=== PATIENT | female | born 1970 | race Caucasian/White ===

== ENCOUNTER 2018-01-05 00:40 | Emergency (ER) | payer MEDICARE ==
[~2018-01-05 00:40] MED LIST: Metoclopramide 10 MG/2 ML SDV IM ONE; Sodium Chloride 0.9% 1,000 ML IV ONE; diphenhydrAMINE 50 MG/ML SDV IVPUSH ONE
[2018-01-05] MEDS ORDERED: Dicyclomine 10 MG Cap PO ONE (02:25)
[2018-01-05] MEDS ORDERED: Ketorolac 30 MG/ML SDV IVPUSH ONE (13:06)
[2018-01-06 06:24] LABS: CHLORIDE,CL 104 mmol/L (98-115); SODIUM,NA 138 mmol/L (136-145)
--- NOTE | 2018-01-06 08:47 | EDM.PDOC ---
ED HPI GENERAL MEDICAL PROBLEM - General Chief Complaint: Gastrointestinal Problem Stated Complaint: ABDOMINAL PAIN Time Seen by Provider: 01/05/18 00:45 Source of Information: Reports: Patient History Limitations: Reports: No Limitations - History of Present Illness INITIAL COMMENTS - FREE TEXT/NARRATIVE: PATIENT IS A 87-YEAR-OLD FEMALE WHO PRESENTS TO THE EMERGENCY DEPARTMENT THIS MORNING WITH A COMPLAINT OF ABDOMINAL PAIN, NAUSEA, ONE EPISODE OF VOMITING, AND ONE EPISODE OF DIARRHEA THAT BEGAN 2 HOURS AGO. ABDOMINAL PAIN IS DESCRIBED CRAMPING INTO A BALL. PATIENT STATES THAT SHE HAD MILD DISCOMFORT DURING DAY AFTER EATING AT A [employer]. SHE CONSUMED A HAMBURGER AND ICE CREAM CONE AND ADMITS TO DAIRY INTOLERANCE, BUT IF SHE DOES HAVE DAIRY PRODUCTS THE SYMPTOMS REVOLVE RESOLVE QUICKLY. SYMPTOMS BECAME MUCH WORSE AT 11 P.M. PATIENT HAS HISTORY OF GASTRIC BYPASS, BUT NO RECENT ABDOMINAL SURGERIES. PATIENT DENIES CHEST PAIN, SHORTNESS OF BREATH, FEVER, DYSURIA, VAGINAL BLEEDING, OUT OF COUNTRY TRAVEL, BLOOD IN STOOL OR VOMITUS. 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 (see below) (NONE) - Related Data Allergies Allergy/AdvReac Type Severity Reaction Status Date / Time ziprasidone [From Geodon] Allergy Other Verified 01/05/18 12:43 Home Meds: Home Meds Atropine/Diphenoxylate [Diphenoxylate-Atropine] 2.5 mg PO QID PRN 01/11/14 [ History] Simvastatin 20 mg PO BEDTIME 01/11/14 [History] Cranberry Extract [Cranberry] 500 mg PO DAILY 01/30/14 [History] DULoxetine HCl [Duloxetine HCl] 90 mg PO BEDTIME 01/30/14 [History] Topiramate 75 mg PO BEDTIME 01/30/14 [History] Levothyroxine Sodium [Synthroid] 150 mcg PO BEDTIME 02/21/16 [History] Cholecalciferol (Vitamin D3) [Vitamin D3] 1,000 unit PO DAILY 05/26/16 [History] Cyanocobalamin (Vitamin B12) [Vitamin B12] 1,000 mcg IM Q60D 05/26/16 [History] ARIPiprazole [Aripiprazole] 15 mg PO BID 01/05/18 [History] Acetaminophen [Tylenol] 650 mg PO Q4H PRN 01/05/18 [History] Calcium Carbonate/Vitamin D3 [Caltrate 600+D 1500 MG-400 Units] 1 tab PO BID 04/17 [History] Dextroamphetamine/Amphetamine [Adderall Xr 30 mg Capsule] 30 mg PO DAILY [History] Dextroamphetamine/Amphetamine [Dextroamp-Amphetamin 20 mg Tab] 20 mg PO 1200 04/17 [History] Dicyclomine [Bentyl] 20 mg PO QID PRN 01/05/18 [History] Eletriptan HBr [Relpax] 40 mg PO Q2H PRN MDD 120 01/05/18 [History] Ibuprofen [Motrin Ib] 600 mg PO Q6H PRN 01/05/18 [History] Iron Polysaccharides Complex [Ferrex 150] 150 mg PO DAILY 01/05/18 [History] Melatonin 20 mg PO BEDTIME 01/05/18 [History] Nystatin 1 applic TOP BID PRN 01/05/18 [History] Omeprazole 40 mg PO DAILY 01/05/18 [History] Ondansetron [Zofran ODT] 4 mg PO Q4H PRN 01/05/18 [History] Polyvinyl Alcohol/Povidone [Refresh Eye Drops] 1 drop EYEBOTH BID PRN 01/05/18 [ History] Potassium Chloride [Klor-Con M20] 20 meq PO DAILY 01/05/18 [History] #103/Iron Fumarate/Fa [ ] 1 tab PO DAILY 01/05/18 [ History] Suvorexant [Belsomra] 10 mg PO BEDTIME 01/05/18 [History] Triamcinolone Acetonide [Kenalog 0.1% Crm] 15 gm TOP QID PRN 01/05/18 [History] buPROPion [Wellbutrin] 100 mg PO TID 01/05/18 [History] diphenhydrAMINE [Benadryl] 25 mg PO BEDTIME 01/05/18 [History] Past Medical History - Past Health History Medical/Surgical History: Denies Medical/Surgical History HEENT History: Reports: Impaired Vision Cardiovascular History: Reports: High Cholesterol Neurological History: Reports: Migraines Psychiatric History: Reports: Anxiety, Depression, Panic Attack Endocrine/Metabolic History: Reports: Hypothyroidism Dermatologic History: Reports: Other (See Below) Other Dermatologic History: has been picking at her skin and has open areas on arms chest neck. - Past Surgical History GI Surgical History: Reports: Bariatric Procedure Social & Family History - Caffeine Use Caffeine Use: Reports: Soda - Living Situation & Occupation Living situation: Reports: , with Significant Other ED ROS GENERAL - Review of Systems Review Of Systems: ROS reveals no pertinent complaints other than HPI. Constitutional: Reports: No Symptoms HEENT: Reports: No Symptoms Respiratory: Reports: No Symptoms Cardiovascular: Reports: No Symptoms Endocrine: Reports: No Symptoms GI/Abdominal: Reports: Abdominal Pain, Diarrhea, Nausea, Vomiting : Reports: No Symptoms Musculoskeletal: Reports: No Symptoms Skin: Reports: No Symptoms Neurological: Reports: No Symptoms Psychiatric: Reports: No Symptoms Hematologic/Lymphatic: Reports: No Symptoms Immunologic: Reports: No Symptoms ED EXAM, GI/ABD - Physical Exam Exam: See Below Exam Limited By: No Limitations General Appearance: Alert, WD/WN, Mild Distress Nose: Normal Inspection, Normal Mucosa, No Blood Throat/Mouth: Normal Inspection, Normal Oropharynx, No Airway Compromise Head: Atraumatic, Normocephalic Neck: Normal Inspection, Supple, Non-Tender. No: Lymphadenopathy (L), Lymphadenopathy (R) Respiratory/Chest: No Respiratory Distress, Lungs Clear, Normal Breath Sounds, No Accessory Muscle Use, Chest Non-Tender Cardiovascular: Regular Rate, Rhythm, No Murmur GI/Abdominal Exam: Soft, No Organomegaly, No Distention, No Abnormal Bruit, No Mass, Tender (PERIUMBILICAL). No: Distended, Guarding, Rigid, Rebound Back Exam: Normal Inspection. No: CVA Tenderness (L), CVA Tenderness (R) Extremities: Normal Inspection, No Pedal Edema Neurological: Alert, Oriented, Normal Cognition Psychiatric: Normal Affect, Normal Mood Skin Exam: Warm, Dry, Intact, Normal Color, No Rash Lymphatic: No Adenopathy Course - Orders/Labs/Meds Labs: Laboratory Tests 01/05/18 01/05/18 01/05/18 Range/Units 01:00 01:10 01:30 WBC 7.0 (5.0-10.0) 10^3/uL RBC 4.46 (3.80-5.50) 10^6/uL Hgb 13.2 (12.0-16.0) g/dL Hct 40.5 (37.0-47.0) % MCV 90.6 (82.0-92.0) fL MCH 29.5 (27.0-31.0) pg MCHC 32.6 (32.0-36.0) g/dL RDW 13.1 (11.5-14.5) % Plt Count 226 (150-300) 10^3/uL MPV 9.2 (7.4-10.4) fL Neut % (Auto) 52.1 (50.0-70.0) % Lymph % (Auto) 36.5 (20.0-40.0) % Motley % (Auto) 8.1 H (2.0-8.0) % Eos % (Auto) 2.5 (1.0-3.0) % Baso % (Auto) 0.8 (0.0-1.0) % Neut # (Auto) 3.5 (2.5-7.0) 10^3/uL Lymph # (Auto) 2.6 (1.0-4.0) 10^3/uL Motley # (Auto) 0.6 (0.1-0.8) 10^3/uL Eos # (Auto) 0.2 (0.1-0.3) 10^3/uL Baso # (Auto) 0.1 (0.0-0.1) 10^3/uL Sodium 138 (136-145) mmol/L Potassium 3.1 L (3.3-5.3) mmol/L Chloride 104 (98-115) mmol/L Carbon Dioxide 23.5 (21.0-32.0) mmol/L BUN 12 (6-25) mg/dL Creatinine 0.64 (0.51-1.17) mg/dL Est Cr Clr Drug Dosing TNP Estimated GFR (MDRD) > 60 mL/min Glucose 146 H (70-110) mg/dL Calcium 8.5 L (8.7-10.3) mg/dL Specimen Type Urinblad Urine Color Yellow (YELLOW) Urine Appearance Clear (CLEAR) Urine pH 5.5 (5.0-9.0) Ur Specific [place] 1.030 (1.005-1.030) Urine Protein Negative (NEGATIVE) mg/dL Urine Glucose (UA) Negative (NEGATIVE) mg/dL Urine Ketones Trace H (NEGATIVE) mg/dL Urine Occult Blood Trace-intact H (NEGATIVE) Urine Nitrite Negative (NEGATIVE) Urine Bilirubin Negative (NEGATIVE) Urine Urobilinogen 0.2 (0.2-1.0) E.U./dL Ur Leukocyte Esterase Negative (NEGATIVE) Meds: Medications Discontinued Medications Generic Name Dose Route Start Last Admin Trade Name Harsha PRN Reason Stop Dose Admin Dicyclomine HCl 10 mg 01/05/18 02:25 01/05/18 02:25 Bentyl PO 01/05/18 02:26 10 mg ONETIME ONE Administration Diphenhydramine HCl 50 mg 01/04/18 02:09 01/05/18 02:05 Benadryl IVPUSH 01/04/18 02:10 25 mg ONETIME ONE Administration Sodium Chloride 1,000 mls @ 999 mls/hr 01/04/18 01:20 01/05/18 01:25 Normal Saline IV 01/04/18 02:20 999 mls/hr .BOLUS ONE Administration Ketorolac Tromethamine 30 mg 01/05/18 13:06 01/05/18 01:20 Toradol IVPUSH 01/05/18 13:07 30 mg ONETIME ONE Administration Metoclopramide HCl 10 mg 01/04/18 01:19 01/05/18 01:25 Reglan IM 01/04/18 01:20 10 mg ONETIME ONE Administration - Radiology Interpretation Free Text/Narrative:: FLAT AND UPRIGHT PLAIN ABDOMINAL FILMS SHOW NO OBSTRUCTIVE BOWEL PATTERN. - Re-Assessments/Exams Free Text/Narrative Re-Assessment/Exam: 01/06/18 08:50 PATIENT AFEBRILE, NONTOXIC APPEARING, VITAL SIGNS STABLE, PAIN CONTROLLED. PATIENT WILL FOLLOW-UP AT [facility] TOMORROW. RETURN TO THE EMERGENCY DEPARTMENT SOONER IF SYMPTOMS CONTINUE OR WORSEN. 01/06/18 08:51 Departure - Departure Time of Disposition: 02:50 Disposition: Home, Self-Care 01 Condition: Good Clinical Impression: Abdominal pain - Discharge Information Instructions: Abdominal Pain, Adult, [id number], Nausea and Vomiting, Adult, [id number] Referrals: Clayton Jara PA-C [Primary Care Provider] - Additional Instructions: PATIENT WILL FOLLOW-UP TOMORROW AT [facility]. RETURN TO THE EMERGENCY DEPARTMENT SOONER IF SYMPTOMS CONTINUE OR WORSEN - Assessment/Plan Assessment:: ABDOMINAL PAIN. Plan: PATIENT WILL FOLLOW-UP AT [facility] TOMORROW
== END 2018-01-05 02:50 | disposition home or self-care (01) ==
LOC: KA.ED 00:40
DX: R10.9 Unspecified abdominal pain (principal); E78.00 Pure hypercholesterolemia, unspecified; E03.9 Hypothyroidism, unspecified; Z79.899 Other long term (current) drug therapy; Z88.8 Allergy status to other drugs, medicaments and biological substances
CPT/HCPCS: 36415; 74021; 80048; 81003; 85025; 96361; 96372; 96374; 96375; 99284; A9270; J1200; J1885; J2765; J7030

== ENCOUNTER 2018-01-05 12:20 | Observation (INO) | payer MEDICARE ==
[2018-01-05] MEDS ORDERED: Dextrose 5%-0.45% NaCl 1,000 ML IV SCH (12:45)
[2018-01-05] MEDS ORDERED: Dicyclomine 10 MG Cap PO PRN (12:53)
[2018-01-05] MEDS ORDERED: Pantoprazole 40 MG Vial IVPUSH SCH (13:00)
[2018-01-05] MEDS: HYDROmorphone 1 MG/ML Syringe IVPUSH PRN ×2 (13:50→18:54)
[2018-01-05 14:20] LABS: CHLORIDE,CL 105 mmol/L (98-115); SODIUM,NA 140 mmol/L (136-145)
[2018-01-05] MEDS ORDERED: Ondansetron 4 MG/2 ML SDV IV PRN (15:30)
[2018-01-05] MEDS ORDERED: Piperacillin/Tazobactam/Dext 3.375 GM in Premix Bag 1 BAG IV SCH ×2 (18:00→21:00)
[2018-01-05] MEDS ORDERED: Promethazine 12.5 MG in Sodium Chloride 0.9% 50 ML IV PRN (18:20)
[2018-01-05] MEDS ORDERED: Iopamidol 612 MG/ML 75 ML Bottle IV ONE (18:25)
[2018-01-05] MEDS ORDERED: Sodium Chloride 0.9% 50 ML IV SCH (18:30)
[2018-01-05 22:14] VITALS: BP 115/77
--- NOTE | 2018-01-08 08:04 | DISCH ---
ADMITTING DIAGNOSIS: Gastroenteritis with nausea, vomiting, abdominal pain. FINAL DIAGNOSIS: Bowel obstruction of gastric bypass. PROCEDURE PERFORMED: None applicable. BRIEF HISTORY AND ESSENTIAL FINDINGS: This is a 47-year-old female patient who at 11:00 p.m. on night, which was 01/04/2018, started having excruciating abdominal pain with nausea. She went to the emergency room around 12:30 a.m. after midnight. She was seen in the emergency room. Lab work was obtained, which CBC and CMP were both unremarkable. Abdominal x-ray was obtained, flat and upright, which showed nonspecific bowel gas pattern per Radiology. The patient was given some IV fluids and sent home. The patient's pain had not resided. She continued to have severe abdominal pain. She presented to the clinic to see myself in the clinic. She was very nauseous. She had emesis multiple in the clinic. She was given IV fluids in the clinic along with Zofran 4 mg IV. She continued to have multiple emesis even after Zofran was given. At that time, she was admitted to the hospital for further evaluation and treatment. The patient was found on CT scan to have a bowel obstruction to her gastric bypass at that time. SIGNIFICANT LABS, X-RAYS, AND CONSULTATION FINDINGS: Patient's lab work that was drawn in the emergency room was unremarkable. Repeat lab work that was obtained around noon on 01/05/2018. CBC showed a white count elevated at 13.8 with a shift to the left. The patient's chemistry panel is unremarkable except for creatinine was low at 0.47. The patient's urinalysis that was obtained in the emergency room was unremarkable. Also, the patient's CAT scan of the abdomen and pelvis that was obtained. The impression reads per Radiology, Uli Robles MD radiologist states: obstruction of the biliary limb of gastric bypass with small bowel dilation up to 5 cm. The transition point appears to be at the enteroenteric anastomosis where there is twisting of mesentery and short segment intussusception. This is a closed-loop type obstruction. COURSE IN THE HOSPITAL WITH COMPLICATIONS IF ANY: The patient had been given multiple doses of Zofran with continued nausea. She was also given some Phenergan IV for nausea. The patient was given Dilaudid IV for abdominal pain. She was also given some Bentyl for abdominal cramping. IV fluid was given to the patient. NG tube to low intermittent suction was started after CAT scan of the abdomen and pelvis was performed. The patient was also given one dose of Zosyn 3.375 g IV. CONDITION, TREATMENT, AND FINAL DISPOSITION ON DISCHARGE AND PROGNOSIS: Condition is unstable. Final disposition would be the [facility] in [place], [place]. PROGNOSIS AND TREATMENT: Bowel obstruction of gastric bypass. The patient will be transferred via ambulance to [place], [place]. The patient will then be transferred by [facility] fixed-wing to [place], [place]. Accepting physician is Uli Mora. He is the one who did patient's gastric bypass surgery in 2004. /[id number]/MODL MTDD
== END 2018-01-05 22:40 ==
LOC: KA.MS 12:20
PROVIDERS: ADMIT Physician Assistant; ATTEND Family Medicine
DX: K91.30 Postprocedural intestinal obstruction, unspecified as to partial versus complete (principal); K95.89 Other complications of other bariatric procedure; E87.6 Hypokalemia; K52.9 Noninfective gastroenteritis and colitis, unspecified; F33.9 Major depressive disorder, recurrent, unspecified; F41.9 Anxiety disorder, unspecified; F42.9 Obsessive-compulsive disorder, unspecified; F90.9 Attention-deficit hyperactivity disorder, unspecified type; F43.10 Post-traumatic stress disorder, unspecified; E78.5 Hyperlipidemia, unspecified; F60.3 Borderline personality disorder; Z79.899 Other long term (current) drug therapy; Z98.890 Other specified postprocedural states; R10.9 Unspecified abdominal pain; E78.00 Pure hypercholesterolemia, unspecified; E03.9 Hypothyroidism, unspecified; Z88.8 Allergy status to other drugs, medicaments and biological substances
CPT/HCPCS: 36415; 74021; 74177; 80048; 80053; 81003; 82271; 85025; 87040; 96361; 96365; 96372; 96374; 96375; 96376; 99284; A9270; C9113; G0378; J1170; J1200; J1885; J2405; J2543; J2550; J2765; J7030; J7042; J7050; Q9967

== ENCOUNTER 2018-01-17 18:12 | Emergency (ER) | payer MEDICARE ==
--- NOTE | 2018-01-17 18:44 | EDM.PDOC ---
ED HPI GENERAL MEDICAL PROBLEM - General Chief Complaint: Gastrointestinal Problem Stated Complaint: mild abdominal pain post surgical bowel obstruction Time Seen by Provider: 01/17/18 18:30 Source of Information: Reports: Patient History Limitations: Reports: No Limitations - History of Present Illness INITIAL COMMENTS - FREE TEXT/NARRATIVE: 47 YO WF presents to ER with concerns of mild right sided abdominal discomfort s /p 10 post op bowel obstruction surgery. Pt with history of gastric bypass (2004 ) who was seen in ER 01/05/2018 and clinic 01/06/2018 and transferred due to bowel obstruction. Pt was seen by her general surgery doctor who performed her bypass in [place] for decompression surgery. Pt tolerated post op course well. Pt woke this am with 2/10 pain localized to right side of abdomen adjacent to vertical incision. Pt denies severe pain, no nausea/vomiting, no worsening pain with movement. Pt eating/drinking well. Pt concerned because she feels a small lump next to incision and thinks it maybe a hernia. Pt without fever/chills and passing gas without any bowel changes. Onset: Today Location: Reports: Abdomen Quality: Reports: Ache Severity: Mild Improves with: Reports: None Worsens with: Reports: None Associated Symptoms: Denies: Chest Pain, Fever/Chills, Nausea/Vomiting, Rash, Shortness of Breath - Related Data Allergies Allergy/AdvReac Type Severity Reaction Status Date / Time ziprasidone [From Malachidon] Allergy Other Verified 01/05/18 12:43 Home Meds: Home Meds Atropine/Diphenoxylate [Diphenoxylate-Atropine] 2.5 mg PO QID PRN 01/11/14 [ History] Simvastatin 20 mg PO BEDTIME 01/11/14 [History] Cranberry Extract [Cranberry] 500 mg PO DAILY 01/30/14 [History] DULoxetine HCl [Duloxetine HCl] 90 mg PO BEDTIME 01/30/14 [History] Topiramate 75 mg PO BEDTIME 01/30/14 [History] Levothyroxine Sodium [Synthroid] 150 mcg PO BEDTIME 02/21/16 [History] Cholecalciferol (Vitamin D3) [Vitamin D3] 1,000 unit PO DAILY 05/26/16 [History] Cyanocobalamin (Vitamin B12) [Vitamin B12] 1,000 mcg IM Q60D 05/26/16 [History] ARIPiprazole [Aripiprazole] 15 mg PO BID 01/05/18 [History] Acetaminophen [Tylenol] 650 mg PO Q4H PRN 01/05/18 [History] Calcium Carbonate/Vitamin D3 [Caltrate 600+D 1500 MG-400 Units] 1 tab PO BID 04/17 [History] Dextroamphetamine/Amphetamine [Adderall Xr 30 mg Capsule] 30 mg PO DAILY [History] Dextroamphetamine/Amphetamine [Dextroamp-Amphetamin 20 mg Tab] 20 mg PO 1200 04/17 [History] Dicyclomine [Bentyl] 20 mg PO QID PRN 01/05/18 [History] Eletriptan HBr [Relpax] 40 mg PO Q2H PRN MDD 120 01/05/18 [History] Ibuprofen [Motrin Ib] 600 mg PO Q6H PRN 01/05/18 [History] Iron Polysaccharides Complex [Ferrex 150] 150 mg PO DAILY 01/05/18 [History] Melatonin 20 mg PO BEDTIME 01/05/18 [History] Nystatin 1 applic TOP BID PRN 01/05/18 [History] Omeprazole 40 mg PO DAILY 01/05/18 [History] Ondansetron [Zofran ODT] 4 mg PO Q4H PRN 01/05/18 [History] Polyvinyl Alcohol/Povidone [Refresh Eye Drops] 1 drop EYEBOTH BID PRN 01/05/18 [ History] Potassium Chloride [Klor-Con M20] 20 meq PO DAILY 01/05/18 [History] #103/Iron Fumarate/Fa [ ] 1 tab PO DAILY 01/05/18 [ History] Suvorexant [Belsomra] 10 mg PO BEDTIME 01/05/18 [History] Triamcinolone Acetonide [Kenalog 0.1% Crm] 15 gm TOP QID PRN 01/05/18 [History] buPROPion [Wellbutrin] 100 mg PO TID 01/05/18 [History] diphenhydrAMINE [Benadryl] 25 mg PO BEDTIME 01/05/18 [History] Past Medical History - Past Health History Medical/Surgical History: Denies Medical/Surgical History HEENT History: Reports: Impaired Vision Cardiovascular History: Reports: High Cholesterol Neurological History: Reports: Migraines Psychiatric History: Reports: Anxiety, Depression, Panic Attack Endocrine/Metabolic History: Reports: Hypothyroidism Dermatologic History: Reports: Other (See Below) Other Dermatologic History: has been picking at her skin and has open areas on arms chest neck. - Past Surgical History GI Surgical History: Reports: Bariatric Procedure Social & Family History - Caffeine Use Caffeine Use: Reports: Soda - Living Situation & Occupation Living situation: Reports: , with Significant Other ED ROS GENERAL - Review of Systems Review Of Systems: See Below Constitutional: Reports: No Symptoms. Denies: Fever, Chills, Decreased Appetite HEENT: Reports: No Symptoms Respiratory: Reports: No Symptoms Cardiovascular: Reports: No Symptoms Endocrine: Reports: No Symptoms GI/Abdominal: Reports: Abdominal Pain : Reports: No Symptoms Musculoskeletal: Reports: No Symptoms Skin: Reports: No Symptoms Neurological: Reports: No Symptoms Psychiatric: Reports: No Symptoms Hematologic/Lymphatic: Reports: No Symptoms Immunologic: Reports: No Symptoms ED EXAM, GI/ABD - Physical Exam Exam: See Below Exam Limited By: No Limitations General Appearance: Alert, WD/WN, No Apparent Distress Head: Atraumatic, Normocephalic Neck: Normal Inspection, Supple, Non-Tender, Full Range of Motion Respiratory/Chest: No Respiratory Distress, Lungs Clear, Normal Breath Sounds, No Accessory Muscle Use, Chest Non-Tender Cardiovascular: Normal Peripheral Pulses, Regular Rate, Rhythm, No Edema, No Gallop, No JVD, No Murmur, No Rub GI/Abdominal Exam: Normal Bowel Sounds, Soft, Non-Tender, No Organomegaly, No Distention, No Abnormal Bruit, No Mass, Pelvis Stable. No: Hernia Back Exam: Normal Inspection, Full Range of Motion, NT Extremities: Normal Inspection, Normal Range of Motion, Non-Tender, Normal Capillary Refill, No Pedal Edema Neurological: Alert, Oriented, CN II-XII Intact, Normal Cognition, Normal Gait, Normal Reflexes, No Motor/Sensory Deficits Psychiatric: Normal Affect, Normal Mood Skin Exam: Warm, Dry, Intact, Normal Color, No Rash Lymphatic: No Adenopathy Departure - Departure Time of Disposition: 18:48 Disposition: Home, Self-Care 01 Condition: Good Clinical Impression: Seroma after procedure - Discharge Information Instructions: Seroma Referrals: Clayton Jara PA-C [Primary Care Provider] - Forms: ED Department Discharge Additional Instructions: 1. Discharge home 2. follow up with PC for further evaluation and treatment this week 3. return to ER for worsening pain, vomiting, or inability to move bowels 4. follow up with surgery as scheduled - Assessment/Plan Assessment:: 1. no evidence of hernia on exam 2. suspect seroma adjacent to incision site Plan: 1. Discharge home 2. follow up with PC for further evaluation and treatment this week 3. return to ER for worsening pain, vomiting, or inability to move bowels 4. follow up with surgery as scheduled
[2018-01-17 19:43] VITALS: BP 112/72
== END 2018-01-17 18:55 | disposition home or self-care (01) ==
LOC: KA.ED 18:12
DX: K91.872 Postprocedural seroma of a digestive system organ or structure following a digestive system procedure (principal); E78.00 Pure hypercholesterolemia, unspecified; F41.9 Anxiety disorder, unspecified; F32.9 Major depressive disorder, single episode, unspecified; E03.9 Hypothyroidism, unspecified; Z98.84 Bariatric surgery status; Z88.8 Allergy status to other drugs, medicaments and biological substances; Z79.899 Other long term (current) drug therapy
CPT/HCPCS: 99283

== ENCOUNTER 2018-02-28 07:49 | Emergency (ER) | payer MEDICARE ==
[2018-02-28 08:04] VITALS: BP 90/57
--- NOTE | 2018-02-28 08:57 | EDM.PDOC ---
ED HPI GENERAL MEDICAL PROBLEM - General Chief Complaint: General Stated Complaint: LOW LEFT BACK PAIN Time Seen by Provider: 02/28/18 08:40 Source of Information: Reports: Patient History Limitations: Reports: No Limitations - History of Present Illness INITIAL COMMENTS - FREE TEXT/NARRATIVE: Patient is a 47-year-old female who presents to the emergency department this morning with a complaint of left lower back pain. Patient states discomfort started about 5 days ago, has progressively gotten worse and had a hard time sleeping last night. Patient denies specific injury or insult, dysuria, dark urine, nausea, vomiting, diarrhea, bloody stool, fever, abdominal pain, chest pain, or shortness of breath. Onset: Gradual Duration: Day(s): Location: Reports: Back Quality: Reports: Ache Severity: Mild Improves with: Reports: None Worsens with: Reports: Movement Context: Reports: Other (Denies any specific injury or insult) Associated Symptoms: Reports: No Other Symptoms Left Lower Back Pain Score (Numeric/FACES): 2 - Related Data Allergies Allergy/AdvReac Type Severity Reaction Status Date / Time ziprasidone [From Geodon] Allergy Other Verified 02/28/18 08:04 Home Meds: Home Meds Atropine/Diphenoxylate [Diphenoxylate-Atropine] 2.5 mg PO QID PRN 01/11/14 [ History] Simvastatin 20 mg PO BEDTIME 01/11/14 [History] Cranberry Extract [Cranberry] 500 mg PO DAILY 01/30/14 [History] DULoxetine HCl [Duloxetine HCl] 90 mg PO BEDTIME 01/30/14 [History] Topiramate 75 mg PO BEDTIME 01/30/14 [History] Levothyroxine Sodium [Synthroid] 150 mcg PO BEDTIME 02/21/16 [History] Cholecalciferol (Vitamin D3) [Vitamin D3] 1,000 unit PO DAILY 05/26/16 [History] Cyanocobalamin (Vitamin B12) [Vitamin B12] 1,000 mcg IM Q60D 05/26/16 [History] ARIPiprazole [Aripiprazole] 15 mg PO BID 01/05/18 [History] Acetaminophen [Tylenol] 650 mg PO Q4H PRN 01/05/18 [History] Calcium Carbonate/Vitamin D3 [Caltrate 600+D 1500 MG-400 Units] 1 tab PO BID 04/17 [History] Dextroamphetamine/Amphetamine [Adderall Xr 30 mg Capsule] 30 mg PO DAILY [History] Dextroamphetamine/Amphetamine [Dextroamp-Amphetamin 20 mg Tab] 20 mg PO 1200 04/17 [History] Dicyclomine [Bentyl] 20 mg PO QID PRN 01/05/18 [History] Eletriptan HBr [Relpax] 40 mg PO Q2H PRN MDD 120 01/05/18 [History] Ibuprofen [Motrin Ib] 600 mg PO Q6H PRN 01/05/18 [History] Iron Polysaccharides Complex [Ferrex 150] 150 mg PO DAILY 01/05/18 [History] Melatonin 20 mg PO BEDTIME 01/05/18 [History] Nystatin 1 applic TOP BID PRN 01/05/18 [History] Omeprazole 40 mg PO DAILY 01/05/18 [History] Ondansetron [Zofran ODT] 4 mg PO Q4H PRN 01/05/18 [History] Polyvinyl Alcohol/Povidone [Refresh Eye Drops] 1 drop EYEBOTH BID PRN 01/05/18 [ History] Potassium Chloride [Klor-Con M20] 20 meq PO DAILY 01/05/18 [History] #103/Iron Fumarate/Fa [ ] 1 tab PO DAILY 01/05/18 [ History] Suvorexant [Belsomra] 10 mg PO BEDTIME 01/05/18 [History] Triamcinolone Acetonide [Kenalog 0.1% Crm] 15 gm TOP QID PRN 01/05/18 [History] buPROPion [Wellbutrin] 100 mg PO TID 01/05/18 [History] diphenhydrAMINE [Benadryl] 25 mg PO BEDTIME 01/05/18 [History] Past Medical History - Past Health History Medical/Surgical History: Denies Medical/Surgical History HEENT History: Reports: Impaired Vision Cardiovascular History: Reports: High Cholesterol CORRECTION WARDEN History: Reports: Musculoskeletal History: Reports: None Neurological History: Reports: Migraines Psychiatric History: Reports: Anxiety, Depression, Panic Attack Endocrine/Metabolic History: Reports: Hypothyroidism Hematologic History: Reports: B12 Deficiency Dermatologic History: Reports: Other (See Below) Other Dermatologic History: has been picking at her skin and has open areas on arms chest neck. - Past Surgical History GI Surgical History: Reports: Bariatric Procedure, Other (See Below) Other GI Surgeries/Procedures: recent abd surgery for bowel intussecion Social & Family History - Family History Family Medical History: Noncontributory - Caffeine Use Caffeine Use: Reports: Soda - Living Situation & Occupation Living situation: Reports: , with Significant Other ED ROS GENERAL - Review of Systems Review Of Systems: ROS reveals no pertinent complaints other than HPI. Constitutional: Reports: No Symptoms HEENT: Reports: No Symptoms Respiratory: Reports: No Symptoms Cardiovascular: Reports: No Symptoms Endocrine: Reports: No Symptoms GI/Abdominal: Reports: No Symptoms : Reports: No Symptoms Musculoskeletal: Reports: Back Pain Skin: Reports: No Symptoms Neurological: Reports: No Symptoms Psychiatric: Reports: No Symptoms Hematologic/Lymphatic: Reports: No Symptoms Immunologic: Reports: No Symptoms ED EXAM, GENERAL - Physical Exam Exam: See Below Exam Limited By: No Limitations General Appearance: Alert, WD/WN, No Apparent Distress Throat/Mouth: Normal Inspection, Normal Oropharynx, No Airway Compromise Head: Atraumatic, Normocephalic Neck: Normal Inspection Respiratory/Chest: No Respiratory Distress, Lungs Clear, Normal Breath Sounds, No Accessory Muscle Use, Chest Non-Tender Cardiovascular: Normal Peripheral Pulses, Regular Rate, Rhythm, No Murmur GI/Abdominal: Normal Bowel Sounds, Soft, Non-Tender, No Organomegaly, No Distention, No Abnormal Bruit, No Mass Back Exam: Paraspinal Tenderness (Left). No: CVA Tenderness (L), CVA Tenderness (R) Extremities: Normal Inspection, Normal Range of Motion, Non-Tender, No Pedal Edema, Normal Capillary Refill Neurological: Alert, Oriented, Normal Cognition, No Motor/Sensory Deficits Psychiatric: Normal Affect, Normal Mood Skin Exam: Warm, Dry, Intact, Normal Color, No Rash Lymphatic: No Adenopathy Course - Vital Signs Last Recorded V/S: Last Vital Signs Temp 97.7 F 02/28/18 07:57 Pulse 75 02/28/18 07:57 Resp 18 02/28/18 07:57 BP 90/57 L 02/28/18 07:57 Pulse Ox 100 02/28/18 07:57 - Orders/Labs/Meds Orders: Active Orders 24 hr Category Date Time Status Ketorolac [Toradol] Med 02/28/18 08:51 Once 60 mg IM ONETIME ONE Labs: Laboratory Tests 02/28/18 Range/Units 08:15 Specimen Type Urincc Urine Color Yellow (YELLOW) Urine Appearance Slightly cloudy H (CLEAR) Urine pH 5.5 (5.0-9.0) Ur Specific [place] 1.025 (1.005-1.030) Urine Protein Negative (NEGATIVE) mg/dL Urine Glucose (UA) Negative (NEGATIVE) mg/dL Urine Ketones Trace H (NEGATIVE) mg/dL Urine Occult Blood Negative (NEGATIVE) Urine Nitrite Negative (NEGATIVE) Urine Bilirubin Small H (NEGATIVE) Urine Urobilinogen 0.2 (0.2-1.0) E.U./dL Ur Leukocyte Esterase Negative (NEGATIVE) Urine RBC 0-5 /HPF Urine WBC 0-5 /HPF Ur Epithelial Cells Few /LPF Other Crystals See note /HPF Urine Bacteria Few (NONE TO FEW) /HPF - Re-Assessments/Exams Free Text/Narrative Re-Assessment/Exam: 02/28/18 08:58 Patient afebrile, nontoxic appearing, vital signs stable. Patient did not display any discomfort and unable to duplicate while in the emergency room, but says that she did have last night. Patient is on a multitude of medications. Patient will be given Toradol here and follow-up at [facility] tomorrow. Departure - Departure Time of Disposition: 08:59 Disposition: Home, Self-Care 01 Condition: Good Clinical Impression: Low back pain Qualifiers: Chronicity: acute Back pain laterality: left Sciatica presence: without sciatica Qualified Code(s): M54.5 - Low back pain - Discharge Information Instructions: Back Pain, Adult, [id number], Musculoskeletal Pain Referrals: Clayton Jara PA-C [Primary Care Provider] - Additional Instructions: Follow-up at [facility] tomorrow. Take Motrin 400 mg every 6 hours as needed for discomfort. Ice 20 minutes on 40 minutes off as needed. Return to emergency room sooner if symptoms continue or worsen. - My Orders Last 24 Hours: My Active Orders 02/28/18 08:51 Ketorolac [Toradol] 60 mg IM ONETIME ONE - Assessment/Plan Last 24 Hours: My Active Orders 02/28/18 08:51 Ketorolac [Toradol] 60 mg IM ONETIME ONE Assessment:: Low back pain Plan: Follow-up at [facility] tomorrow
[2018-02-28] MEDS: Ketorolac 60 MG/2 ML SDV IM ONE (09:00)
== END 2018-02-28 09:08 | disposition home or self-care (01) ==
LOC: KA.ED 07:49
DX: M54.5 Low back pain (principal); E78.00 Pure hypercholesterolemia, unspecified; F31.9 Bipolar disorder, unspecified; F41.9 Anxiety disorder, unspecified; E03.9 Hypothyroidism, unspecified; Z79.899 Other long term (current) drug therapy
CPT/HCPCS: 81001; 96372; 99283; J1885

== ENCOUNTER 2023-07-23 11:25 | Emergency (ER) | payer MEDICARE ==
[2023-07-23] MEDS ORDERED: Diphtheria,Pertussis(Acell),Tetanus Vaccine 0.5 ML Syringe IM ONE (11:36)
[2023-07-23 11:46] VITALS: BP 128/77; PULSE 92
[2023-07-23] MEDS ORDERED: Lidocaine 2% with EPINEPHrine 1:100,000 20 ML MDV INJECT ONE (11:58)
[2023-07-23] MEDS: Lidocaine 2% with EPINEPHrine 1:100,000 20 ML MDV ONE ×2 (11:59)
[2023-07-23] MEDS ORDERED: Bacitracin/Neomycin/Polymyxin B Oint 0.9 GM U/D Packet ONE (12:01)
[2023-07-23] MEDS ORDERED: Bacitracin/Neomycin/Polymyxin B Oint 28.4 GM Tube TOP ONE (12:01)
[2023-07-23] MEDS ORDERED: Bacitracin/Neomycin/Polymyxin B Oint 0.9 GM U/D Packet TOP ONE (12:03)
== END 2023-07-23 12:23 | disposition home or self-care (01) ==
LOC: KA.ED 11:25
DX: S61.412A Laceration without foreign body of left hand, initial encounter (principal); Z23 Encounter for immunization; I10 Essential (primary) hypertension; E78.00 Pure hypercholesterolemia, unspecified; E03.9 Hypothyroidism, unspecified; Z86.16 Personal history of COVID-19; Z90.49 Acquired absence of other specified parts of digestive tract; Z90.710 Acquired absence of both cervix and uterus; Z79.899 Other long term (current) drug therapy; Z88.8 Allergy status to other drugs, medicaments and biological substances; W26.0XXA Contact with knife, initial encounter
CPT/HCPCS: 12001; 90471; 90715; 99282-25; J3490

== ENCOUNTER 2023-08-28 23:22 | Emergency (ER) | payer MEDICARE ==
[2023-08-28] MEDS: Acetaminophen 325 MG Tab PO ONE (23:55)
[2023-08-28] MEDS: Acetaminophen 500 MG Tab PO ONE (23:55)
[2023-08-28] MEDS: diphenhydrAMINE 25 MG Cap PO ONE (23:55)
[2023-08-29] VITALS: BP 107/70; PULSE 100
[2023-08-29 00:36] LABS: CORONAVIRUS COVID-19 NAA NEGATIVE (NEGATIVE); INFLUENZA A NAA NEGATIVE (NEGATIVE); INFLUENZA B NAA NEGATIVE (NEGATIVE); RESPIRATORY SYNCYTIAL VIR NAA NEGATIVE (NEGATIVE)
== END 2023-08-29 00:44 | disposition home or self-care (01) ==
LOC: KA.ED 23:22
DX: L50.9 Urticaria, unspecified (principal); B34.9 Viral infection, unspecified; R50.9 Fever, unspecified; I10 Essential (primary) hypertension; E78.00 Pure hypercholesterolemia, unspecified; E03.9 Hypothyroidism, unspecified; Z20.822 Contact with and (suspected) exposure to COVID-19; Z79.899 Other long term (current) drug therapy; Z88.8 Allergy status to other drugs, medicaments and biological substances; Z88.5 Allergy status to narcotic agent
CPT/HCPCS: 0241U; 99284; A9270-GY

== ENCOUNTER 2024-01-09 14:40 | Emergency (ER) | payer MEDICARE ==
[2024-01-09 15:40] VITALS: BP 130/86; PULSE 95
[2024-01-09] MEDS: Acetaminophen/oxyCODONE 325-5 MG Tab PO ONE (16:09)
== END 2024-01-09 16:15 | disposition home or self-care (01) ==
LOC: KA.ED 14:40
DX: S61.251A Open bite of left index finger without damage to nail, initial encounter (principal); I10 Essential (primary) hypertension; E78.00 Pure hypercholesterolemia, unspecified; E03.9 Hypothyroidism, unspecified; Z86.16 Personal history of COVID-19; Z79.899 Other long term (current) drug therapy; Z88.8 Allergy status to other drugs, medicaments and biological substances; Z90.49 Acquired absence of other specified parts of digestive tract; Z90.710 Acquired absence of both cervix and uterus; W55.01XA Bitten by cat, initial encounter
CPT/HCPCS: 99283; A9270-GY